=== PATIENT | female | born 1990 | race African-American/Black ===

== ENCOUNTER 2022-12-19 18:50 | Emergency (ER) | payer OTHER ==
[~2022-12-19] VITALS: Ht 182.9 cm; Wt 77.1 kg
[2022-12-19 19:54] VITALS: BP 171/96
[2022-12-19] MEDS ORDERED: OLANZAPINE 10 MG VIAL IM ONE ×3 (20:00→23:58)
--- NOTE | 2022-12-19 20:10 | NUR ---
RECEIVED 32 Y/O FEMALE PT, ON 5150 HOLD BY [employer]. PT CLAIMS SHE IS SURROUNDED BY SPIRITS. PT IS CALM RIGHT NOW BUT TELLS HER FEET AND HANDS ARE DISTORTED.
[2022-12-19 20:21] LABS: BASOPHILS % (AUTO) 1.1 % (0.0-2.0); EOSINOPHILS % (AUTO) 0.3 % (0.0-6.0); HEMATOCRIT 37 % (33-45); HEMOGLOBIN 11.9 g/dL (11.5-14.8); LYMPHOCYTES # (AUTO) 1.6 K/uL (0.8-4.8); LYMPHOCYTES % (AUTO) 36.4 % (20.0-44.0); MEAN CORPUSCULAR HGB CONC 33 g/dl (31.0-36.0); MEAN CORPUSCULAR VOLUME 86 fL (82-100); MONOCYTES # (AUTO) 0.6 K/uL (0.1-1.30); MONOCYTES % (AUTO) 13.6 % (2.0-12.0); NEUTROPHILS # (AUTO) 2.2 K/uL (1.8-8.9); NEUTROPHILS % (AUTO) 48.6 % (43.0-81.0); PLATELET COUNT (AUTO) 294 K/uL (150-450); RED BLOOD CELL COUNT(AUTO) 4.28 MIL/uL (4.0-5.2); WHITE BLOOD COUNT (AUTO) 4.5 K/uL (4.3-11.0)
[2022-12-19 20:43] LABS: ALANINE AMINOTRANSFERASE 51 U/L (12-78); ALBUMIN 4.4 g/dL (3.4-5.0); ALCOHOL, BLOOD < 3 mg/dL (0-0); ALKALINE PHOSPHATASE 49 U/L (46-116); ASPARTATE AMINOTRANSFERASE 92 U/L (15-37); BILIRUBIN,DIRECT 0.3 mg/dL (0.0-0.2); BILIRUBIN,TOTAL 0.9 mg/dL (0.2-1.0); CALCIUM, SERUM 9.6 mg/dL (8.5-10.1); CARBON DIOXIDE 24 mmol/L (21-32); CHLORIDE 103 mmol/L (98-107); CREATININE 0.9 mg/dL (0.6-1.3); GLUCOSE 84 mg/dL (74-106); POTASSIUM 3.8 mmol/L (3.5-5.1); SODIUM SERUM 138 mmol/L (136-145); TOTAL PROTEIN, SERUM 7.7 g/dL (6.4-8.2); UREA NITROGEN, BLOOD 10 mg/dL (7-18)
--- NOTE | 2022-12-19 21:37 | NUR ---
URINE SAMPLE TAKEN FROM PT FOR LAB REHAB NURSE.
--- NOTE | 2022-12-19 21:43 | NUR ---
COVID SWAB DONE.
[2022-12-19 22:07] LABS: BILIRUBIN,URINE 2+ (NEGATIVE); COLOR,URINE YELLOW (YELLOW); LEUKOCYTE ESTERASE ,URINE NEGATIVE (NEGATIVE); NITRITE, URINE NEGATIVE (NEGATIVE); PROTEIN,URINE NEGATIVE (NEGATIVE); UGLUCOSE NEGATIVE (NEGATIVE)
--- NOTE | 2022-12-19 22:24 | NUR ---
CALLED MARY MARTINO FOR PSYCH EVAL
--- NOTE | 2022-12-19 23:28 | NUR ---
SEEN AND EVALUATED BY SALENA HERNANDEZ. PT WILL REMAINE ON 5150 HOLD.
[2022-12-19] MEDS ORDERED: LORAZEPAM INJ 2 MG/ML VIAL ONE (23:47)
[2022-12-20] MEDS ORDERED: LORAZEPAM INJ 2 MG/ML VIAL IM ONE
[2022-12-20] MEDS ORDERED: OLANZAPINE 10 MG VIAL IM ONE
--- NOTE | 2022-12-20 07:47 | NUR ---
[facility] CALLED WITH ACCEPTANCE INFO UNDER THE CARE OF DR. KNIGHT ROOM 224-1 NUMBER FOR REPORT [phone] WILL CALL FOR TRANSPORTATION
--- NOTE | 2022-12-20 07:51 | NUR ---
CALLED [facility] AND SET UP S TRANSPORT ETA [id number]
--- NOTE | 2022-12-20 08:19 | NUR ---
report given WILFRED MCMILLAN at [facility] for continuation of care
--- NOTE | 2022-12-20 08:35 | NUR ---
[facility] DECOR[facility] AT BEDSIDE FOR TRANSPORT
== END 2022-12-20 08:48 ==
LOC: ER 18:57
DX: R45.851 Suicidal ideations (principal); R46.1 Bizarre personal appearance; H57.89 Other specified disorders of eye and adnexa; G89.29 Other chronic pain; Z20.822 Contact with and (suspected) exposure to COVID-19
CPT/HCPCS: 99285; 96372 ×3; 51702; 85025; 80048; 80076; 81003; 36415 ×2; 87426; 80143; 80320; 80307; 84702; J2060; J3490 ×2; C9803; G0480